=== PATIENT | female | born 1995 | race African-American/Black ===

== ENCOUNTER 2018-11-20 09:02 | Inpatient (IN) ==
[2018-11-20 06:34] LABS: Amphetamine Screen,Urine Negative ng/mL (Cutoff=1000); Barbiturate Screen,Urine Negative ng/mL (Cutoff=200); Benzodiazepines Screen,Urine Negative ng/mL (Cutoff=300); Cannabinoid Screen,Urine Negative ng/mL (Cutoff = 50); Cocaine Screen,Urine Negative ng/mL (Cutoff= 300); Opiate Screen,Urine Negative ng/mL (Cutoff=300); Phencyclidine Screen,Urine Negative ng/mL (Cutoff=25)
[~2018-11-20 09:02] MED LIST: *HR* Nalbuphine 10 MG/ML AMPUL IVP PRN; Epidural Premix (fent/bupiv) 110 ML EP SCH; Famotidine 20 MG/2 ML VIAL IVP PRN; Metoclopramide 10 MG/2 ML VIAL IVP PRN; Naloxone 0.4 MG/ML INJ IVP PRN; Ondansetron 4 MG/2 ML VIAL IVP PRN
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
[2018-11-20] MEDS ORDERED: D5% in Lactated Ringers 1,000 ML IVC SCH (09:15)
[2018-11-20 09:39] LABS: Basophils % 0.3 %; Eosinophils # 0.1 K/mcL (0.0-0.6); Eosinophils % 0.9 %; Hematocrit 36.3 % (35.3-44.9); Hemoglobin 11.9 g/dL (11.5-15.4); Immature Granulocytes % 1.6 % (0-4); Lymphocytes # 1.6 K/mcL (0.6-4.6); Lymphocytes % 13.7 %; Mean Corpuscular HGB Conc 32.8 g/dL (31.6-35.5); Mean Corpuscular Hemoglobin 24.4 pg (28.0-33.3); Mean Corpuscular Volume 74.4 fL (83.0-100.0); Mean Platelet Volume 10.9 fL (9.4-12.4); Monocytes # 0.8 K/mcL (0.0-1.3); Monocytes % 6.7 %; Platelet Count 225 K/mcL (140-400); Red Blood Count 4.88 M/mcL (3.82-4.97); Red Cell Distribution Width 15.9 % (11.5-14.5); Segmented Neutrophils % 76.8 %; White Blood Count 11.7 K/mcL (4.3-11.1)
[2018-11-20] MEDS ORDERED: Ringers Solution, Lactated 1,000 ML ONE ×4 (09:46→18:58)
[2018-11-20 10:01] LABS: Amphetamine Screen,Urine Negative ng/mL (Cutoff=1000); Barbiturate Screen,Urine Negative ng/mL (Cutoff=200); Benzodiazepines Screen,Urine Negative ng/mL (Cutoff=200); Cannabinoid Screen,Urine Negative ng/mL (Cutoff = 50); Cocaine Screen,Urine Negative ng/mL (Cutoff= 300); Opiate Screen,Urine Negative ng/mL (Cutoff=300); Phencyclidine Screen,Urine Negative ng/mL (Cutoff=25)
[2018-11-20] MEDS: valACYclovir 500 MG TABLET PO SCH ×2 (10:36→20:38)
--- NOTE | 2018-11-20 11:03 | Anesthesia Evaluation PreOp ---
Date of Encounter: 11/20/18 Time of Encounter: 11:01 - Past History Planned Operation: VI Cardiac History: Denies any Significant Hx Pulmonary History: Former smoker, Other (Marijuana. Last used 6 months ago.) HOT STICK MAN History: Seizures (Questionable seizure in Feb 2018.) Other Medical History: Denies Any Significant HX Anesthesia History: No Prior Anesthetic Complications, Past Anesthesia Alcohol Use: none Drug use: marijuana Medications and Allergies Caplet 1 tab 11/20/18 [History] valACYclovir [Valtrex] 11/20/18 [History] Allergy/AdvReac Type Severity Reaction Status Date / Time No Known Allergies Allergy Verified 02/05/18 13:23 - Meds/Allergy Pre-op Review Medications Reviewed: Yes Allergies Reviewed: Yes Beta Blockers on Current Med List: No Anesthesia Results - Labs 11/20/18 09:20 Anesthesia Exam O2 Sat Height 1.6 m Height 1.6 m Weight 78.1 kg Weight 78.1 kg NPO (# of Hours): 6 Pain Scale: 5 Pain Scale Used: Numeric (1 - 10) - HEENT Pupil (Motor): Pupils equal Mallampati: II Teeth: Normal Oral Opening: Greater than 3 - HOT STICK MAN LOC: Oriented HOT STICK MAN Motor: Normal RUE, Normal LUE, Normal RLE, Normal LLE, Normal Face HOT STICK MAN Sensory: Normal: RUE, LUE, RLE, LLE, Face - Cardiac Rhythm: Regular Murmur: None JVD: No Carotid Bruit: No - Pulmonary Breath Sounds: bilateral Clear Respiratory Effort: Symmetrical Anesthesia Assess/Plan ASA Score: 2 Level of consciousness: Cooperative, Oriented Anesthetic Plan: General, Epidural Autologous Blood: Yes Monitoring Plan: Standard Monitors Recovery Plan: PACU
--- NOTE | 2018-11-20 11:06 | Anesthesia Procedures ---
Date of Encounter: 11/20/18 Time of Encounter: 11:04 Procedures: Anesthesia - Epidural/Spinal Patient ID/Chart reviewed: Yes Patient examined: Yes OB Eval: Gestational age: 38.6 OB Eval: : 1 OB Eval: Hx Para: 0 OB Eval: Dilated at (cm): 7 OB Eval: Contractions: Non-stressed pattern Consent Obtained: Yes Supplemental Oxygen: None/Room Air Site Prep: Aseptic Technique, Sterile prep and drape, Povidone-Iodine 1% Patient position: upright Local Anesthetic: Lidocaine 1% Amount of Local Anesthetic used: 3 Touhy Needle Gauge: 18 Touhy Needle Depth (cm): 8 Catheter Depth at Skin (cm): 19 Test Dose (1.5% Lido + Epi): Volume given (mls): 5 Test Dose Result: Negative Loading Dose: Other: 10mls of epidural pharm bag premix solution Loading Dose Administered: Thru Catheter Infusion Med: 0.125% Bupivacaine w/ 2 mcg/ml Fentanyl Infusion Rate (mls/hr): 15 ([id number]) Catheter Secured in Place: Tegaderm, Tape Interspace Used: L3-L4 Loss of Resistance (GABY): Yes Blood: No CSF: No Paresthesia: No Spinal Needle Gauge: 25 Procedure: pt tolerated procedure well. no complications. vss. fhr stable.
--- NOTE | 2018-11-20 12:50 | Event Note ---
Date of Encounter: 11/20/18 Time of Encounter: 12:49 AROM with amnio hook. CLEAR FLUID. /-1 (-2) station Good FM CEFM Continue with IV PITOCIN. MD EVI
[2018-11-20] MEDS ORDERED: EPHEDrine 50 MG/ML VIAL ONE (12:58)
--- NOTE | 2018-11-20 13:35 | Anesthesia Progress Note ---
Date of Encounter: 11/20/18 Time of Encounter: 11:10 Anesthesia Note - Note Note: 11/20/18 13:33 called for low b/p and pt feeling nauseous, see nursing notes for complete vitals. sys b/p in the 90's. fluid bolus given. 20mg ephedrine in 4 equally divided doses given over 10 mins. pt feeling much better. fluid bolus left continuing for 1L total.
[2018-11-20] MEDS ORDERED: Oxytocin 20 units/ LR 1000 mL 20 UNIT/1,000 ML BAG IVC SCH (14:15)
[2018-11-20] MEDS ORDERED: *HR* Ropivacaine/PF 0.5% 20 ML VIAL ONE (17:14)
[2018-11-20] MEDS ORDERED: *HR* FentaNYL (PF) 100 MCG/2 ML VIAL ONE (19:30)
--- NOTE | 2018-11-20 19:34 | Anesthesia Progress Note ---
Date of Encounter: 11/20/18 Time of Encounter: 19:33 Anesthesia Note - Note Note: 11/20/18 19:33 called for increased pain during contractions. pain 12/30. bolus given of 10ml of .5% ropivacaine and 100mcg fentanyl after negative aspiration. vss. fhr stable. gtt increased to 18ml/hr.
--- NOTE | 2018-11-20 22:21 | OB/GYN Procedure Note ---
Delivery - Delivery Date: 11/20/18 Provider: Sallie David Intrapartum events: none Delivery induction: AROM, oxytocin, misoprostol Delivery augmentation: rupture of membranes, pitocin Delivery monitor: external FHT, external uterine Anesthesia: epidural Quantitated Blood Loss: 250 - (s) A Infant Delivery Date: 11/20/18 Delivery Time: 22:00 Presentation: vertex Position: OA Route of delivery: Gender: Male Viability: Viable Pounds: 7 Ounces: 8 at 1 minute: 3 at 5 mins: 8 Shoulder Dystocia: not encountered Placenta: spontaneous Cord: nuchal cord, 3 umbilical vessels, nuchal cut - Repair Episiotomy: none Laceration Description: None, Superficial - Complications Delivery complications: none - Disposition Mom disposition: stable in LDR - Comments Comments: Called to patient bedside. C/C/+1. With adequate maternal effort, infant delivered over intact perineum. Tight nuchal appreciated. Cut/clamped. Infant was stunned, placed on maternal abdomen for stimulation and suction. Baby was taken to warmer and nursery was called. No perineal laceration(s) were appreciated, placenta was delivered spontaneously and completed with minimal but appropriate traction. IV Pitocin was started and the uterus clamped down appropriately. No perineal laceration(S) were repaired, only superficial laceration(s) were appreciated but hemostatic. Counts were correct x3. APGARS: 3/8 (baby was stunned but quickly recovered once stimulated after cord was clamped) Weight: 7#8oz I was present for the entirety of the procedure. MD EVI
[2018-11-21] MEDS ORDERED: Ibuprofen 600 MG TABLET PO PRN (00:33)
[2018-11-21] MEDS ORDERED: Oxytocin 20 units/ LR 1000 mL 20 UNIT/1,000 ML BAG IVC SCH (00:33)
[2018-11-21] MEDS ORDERED: Measles/Mumps/Rubella Vacc 0.5 ML VIAL SQ PRN (00:33)
[2018-11-21] MEDS ORDERED: Rho Immune Globulin 1,500 UNIT SYRINGE IM PRN (00:33)
[2018-11-21] MEDS ORDERED: Lanolin 7 G OINT...G. TP PRN (00:33)
[2018-11-21] MEDS ORDERED: Acetaminophen 325 MG TABLET PO PRN (00:33)
[2018-11-21] MEDS ORDERED: Benzocaine/Menthol 56 GM AEROSOL SPRAY TP PRN (00:33)
[2018-11-21] MEDS: Prenatal Vit/FA 1 EACH TABLET PO SCH (07:44)
[2018-11-21 08:18] LABS: Basophils % 0.2 %; Eosinophils # 0.1 K/mcL (0.0-0.6); Eosinophils % 0.5 %; Hematocrit 26.9 % (35.3-44.9); Hemoglobin 9.1 g/dL (11.5-15.4); Immature Granulocytes % 0.5 % (0-4); Lymphocytes # 1.1 K/mcL (0.6-4.6); Lymphocytes % 9.4 %; Mean Corpuscular HGB Conc 33.8 g/dL (31.6-35.5); Mean Corpuscular Hemoglobin 24.9 pg (28.0-33.3); Mean Corpuscular Volume 73.7 fL (83.0-100.0); Mean Platelet Volume 11.3 fL (9.4-12.4); Monocytes # 0.9 K/mcL (0.0-1.3); Monocytes % 7.6 %; Neutrophils # 9.5 K/mcL (1.6-8.9); Platelet Count 175 K/mcL (140-400); Red Blood Count 3.65 M/mcL (3.82-4.97); Red Cell Distribution Width 15.7 % (11.5-14.5); Segmented Neutrophils % 81.8 %; White Blood Count 11.7 K/mcL (4.3-11.1)
--- NOTE | 2018-11-21 09:07 | OB/GYN Progress Note ---
Date of Encounter: 11/21/18 Time of Encounter: 09:07 - Assessment and Plan (1) Status post normal vaginal delivery Current Visit: Yes Status: Acute (2) (spontaneous vaginal delivery) Current Visit: Yes Status: Acute The patient is meeting all milestones. Expect discharge tomorrow morning. Continue to monitor the patient's pain. Continue to monitor the patient's lochia status Continue to monitor for signs of depression Subjective - Subjective Principal diagnosis: Vaginal Interval history: Pt is 11 hours S/P . Patient reports: appetite normal, voiding normally, pain well controlled, ambulating normally, other ( Pt is passing gas, but has not had a BM. Lochia has decreased, 3 pads initially, none overnight ), no appetite poor, no pain poorly controlled, no nauseated : doing well, bottle feeding Objective - Latest Vital Signs Latest vital signs: Vital Signs Temp Pulse Resp BP Pulse Ox 11/21/18 08:05 98.3 F 85 16 106/69 98 11/21/18 02:30 98.9 F 99 18 110/67 100 11/21/18 01:29 98.7 F 95 16 103/61 99 11/21/18 00:25 99.2 F 97 14 110/69 99 Intake and Output 11/20/18 11/21/18 11/21/18 23:59 07:59 15:59 Intake Total 700 / 700 Output Total 900 / 900 Balance -200 / -200 Intake: Oral 700 / 700 Output: Urine 900 / 900 Other: # Voids 1 Weight 76.3 kg Patient Weight 11/21/18 23:59 Weight 76.3 kg - Exam Lungs: bilateral: normal Chest: Normal S1, Normal S2 Extremities: Present: normal Abdomen: Present: normal appearance, soft, other (Bowel sounds 4) Uterus: Present: normal, firm Uterus Position: 2 Fingers Below Umbilicus Comments: Patient's mood is appropriate. Does not show any signs of depression or anxiety - Labs Labs: Laboratory Results - last 24 hr 11/20/18 11/20/18 11/21/18 09:20 09:20 08:00 WBC 11.7 H 11.7 H RBC 4.88 3.65 L Hgb 11.9 9.1 L D Hct 36.3 26.9 L MCV 74.4 L 73.7 L MCH 24.4 L 24.9 L MCHC 32.8 33.8 RDW 15.9 H 15.7 H Plt Count 225 175 MPV 10.9 11.3 Immature Gran % 1.6 0.5 Seg Neutrophils % 76.8 81.8 Lymphocytes % 13.7 9.4 Monocytes % 6.7 7.6 Eosinophils % 0.9 0.5 Basophils % 0.3 0.2 Neutrophils # 9.0 H 9.5 H Lymphocytes # 1.6 1.1 Monocytes # 0.8 0.9 Eosinophils # 0.1 0.1 Basophils # 0.0 0.0 Urine Opiates Screen Negative Ur Buprenorphine Scrn Negative Ur Barbiturates Screen Negative Ur Phencyclidine Scrn Negative Ur Amphetamines Screen Negative U Benzodiazepines Scrn Negative Urine Cocaine Screen Negative U Marijuana (THC) Screen Negative Ur Drug Screen Interp See Below
[2018-11-22] MEDS: Prenatal Vit/FA 1 EACH TABLET PO SCH (08:04)
--- NOTE | 2018-11-22 09:11 | Discharge Summary ---
Date of Encounter: 11/22/18 Time of Encounter: 09:07 - Discharge Diagnosis (1) Vaginal delivery Priority: Primary Status: Acute Comments: Stable meeting all PP milestones, bleeding minimal, bottle feeding. desires discharge. (2) Acute blood loss anemia Priority: Secondary Status: Acute Comments: will discharge home on iron - Discharge Medications Prescriptions: New Ferrous Sulfate 325 mg PO 0800 #60 tablet Acetaminophen [Tylenol] 650 mg PO Q6HR PRN tablet PRN Reason: Mild Pain Ibuprofen [Motrin] 600 mg PO Q6H PRN #60 tablet PRN Reason: Cramping Benzocaine/Menthol [place] [Dermoplast [place]] 1 appl TP QID PRN aerosol PRN Reason: See Comments Docusate [Colace] 100 mg PO BID #60 capsule Lanolin [Lansinoh] 1 appl TP QID PRN oint...g. PRN Reason: Continued Caplet 1 tab Discontinued valACYclovir [Valtrex] Home Medications: Caplet 1 tab 11/20/18 [History] Acetaminophen [Tylenol] 650 mg PO Q6HR PRN tablet 11/22/18 [Rx] Benzocaine/Menthol [place] [Dermoplast [place]] 1 appl TP QID PRN aerosol 11/22/18 [Rx] Docusate [Colace] 100 mg PO BID #60 capsule 11/22/18 [Rx] Ferrous Sulfate 325 mg PO 0800 #60 tablet 11/22/18 [Rx] Ibuprofen [Motrin] 600 mg PO Q6H PRN #60 tablet 11/22/18 [Rx] Lanolin [Lansinoh] 1 appl TP QID PRN oint...g. 11/22/18 [Rx] Allergies/Adverse Reactions: Allergy/AdvReac Type Severity Reaction Status Date / Time No Known Allergies Allergy Verified 02/05/18 13:23 Data Procedures and tests throughout hospitalization: Laboratory Tests 11/20/18 11/20/18 11/20/18 06:23 09:20 09:20 WBC 11.7 H RBC 4.88 Hgb 11.9 Hct 36.3 MCV 74.4 L MCH 24.4 L MCHC 32.8 RDW 15.9 H Plt Count 225 MPV 10.9 Immature Gran % 1.6 Seg Neutrophils % 76.8 Lymphocytes % 13.7 Monocytes % 6.7 Eosinophils % 0.9 Basophils % 0.3 Neutrophils # 9.0 H Lymphocytes # 1.6 Monocytes # 0.8 Eosinophils # 0.1 Basophils # 0.0 Urine Opiates Screen Negative Negative Ur Buprenorphine Scrn Negative Negative Ur Barbiturates Screen Negative Negative Ur Phencyclidine Scrn Negative Negative Ur Amphetamines Screen Negative Negative U Benzodiazepines Scrn Negative Negative Urine Cocaine Screen Negative Negative U Marijuana (THC) Screen Negative Negative Ur Drug Screen Interp See Below See Below 11/21/18 08:00 WBC 11.7 H RBC 3.65 L Hgb 9.1 L D Hct 26.9 L MCV 73.7 L MCH 24.9 L MCHC 33.8 RDW 15.7 H Plt Count 175 MPV 11.3 Immature Gran % 0.5 Seg Neutrophils % 81.8 Lymphocytes % 9.4 Monocytes % 7.6 Eosinophils % 0.5 Basophils % 0.2 Neutrophils # 9.5 H Lymphocytes # 1.1 Monocytes # 0.9 Eosinophils # 0.1 Basophils # 0.0 Urine Opiates Screen Ur Buprenorphine Scrn Ur Barbiturates Screen Ur Phencyclidine Scrn Ur Amphetamines Screen U Benzodiazepines Scrn Urine Cocaine Screen U Marijuana (THC) Screen Ur Drug Screen Interp Date of admission: 11/20/18 09:02 Consults: 11/20/18 10:03 Consult to Channel Process Supervisor ([employer]) [CONS] Routine Reason For Exam: Reason for SW Consult: THC use in early 11/21/18 00:33 Consult to Software Licensing Executive [CONS] Routine Comment: Vaginal delivery, consult needed Discharging clinician: Maxine Bui Anticipated date of discharge: 11/22/18 - Patient Status Disposition: Home, Self-Care Condition: Good Functional capacity at discharge: independent ambulation Overall status at discharge: patient is progressing back to baseline - Discharge Instructions - Diet and Activity Activity: resume usual activities as tolerated Diet: regular diet Hospital Course Reason for admission: induction of labor, IUP at term Delivery: Episiotomy: none Laceration: none Other procedures: none complications: none Discharge diagnosis: IUP at term delivered [place] baby: male Hospital course: Delivery - Delivery Date: 11/20/18 Provider: Sallie David Intrapartum events: none Delivery induction: AROM, oxytocin, misoprostol Delivery augmentation: rupture of membranes, pitocin Delivery monitor: external FHT, external uterine Anesthesia: epidural Quantitated Blood Loss: 250 - Infant (s) A Infant Delivery Date: 11/20/18 Infant Delivery Time: 22:00 Presentation: vertex Position: OA Route of delivery: Gender: Male Viability: Viable Pounds: 7 Ounces: 8 at 1 minute: 3 at 5 mins: 8 Shoulder Dystocia: not encountered Placenta: spontaneous Cord: nuchal cord, 3 umbilical vessels, nuchal cut - Repair Episiotomy: none Laceration Description: None, Superficial - Complications Delivery complications: none - Disposition Mom disposition: stable in PP and appropriate for discharge. Time Attestation: Total time spent providing and/or coordinating discharge services: Time Spent: Less than 30 minutes Exam - Constitutional Vitals: Temp Pulse Resp BP Pulse Ox 98.4 F 89 14 101/64 99 11/21/18 19:45 11/21/18 19:45 11/21/18 19:45 11/21/18 19:45 11/21/18 19:45 General appearance IM: A&O X 3 - Respiratory Respiratory exam: Present: CTAB - Cardiovascular Cardiovascular exam IM: Present: RRR - GI/Abdominal GI/Abdominal exam IM: soft - Uterine Tone: Firm Uterus Position: At Umbilicus - Extremities Exam Extremities exam IM: Present: normal capillary refill, normal inspection - Neurological Exam Neurological exam: oriented X3 - Psychiatric Additional comments: reports good mood
[2018-11-22 09:36] VITALS: BP 86/54
== END 2018-11-22 13:20 | disposition home or self-care (01) | DRG 806 ==
LOC: 1NENULAB → 1NENUOBS 11-21 00:33
PROVIDERS: ADMIT Registered Nurse; ATTEND Registered Nurse